=== PATIENT | female | born 1980 | race African-American/Black ===

== ENCOUNTER → 2017-04-12 | Day surgery (SDC) | payer OTHER ==
[~2017-04-12] MED LIST: BUPIVACAINE HCL PF 0.5% 10 ML VIAL ONE; BUTACAP2 PO; CYCL10TA PO; CYCL20CR PO; LACTATED RINGER'S 1000 ML INJ 1,000 ML ONE; MIDAZOLAM HCL 2 MG/2 ML VIAL ONE; NEUR300C PO; TRAM50TA PO; [UNRECOGNIZED DRUG - CODE]; ceFAZolin INJ 1,000 MG VIAL ONE
--- NOTE | 2017-04-15 13:54 | PD.OP ---
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 He is scheduled for the above- mentioned procedures. The planned procedures were discussed with the patient including the associated risks. The risks included but are not limited to bleeding, infection, nerve damage, failure to heal, possible need for reoperation, possible recurrence, or any associated risk of the anesthesia. He voiced understanding and agreed with my recommendations and proceed as planned. DESCRIPTION OF PROCEDURE: The patient was identified in the holding area and correct operative site (LEFT) was identified by the surgeon's jaime. Informed consent was obtained. The patient was then brought to the operating room and transferred to the operating table in supine position. She has severe left upper extremity contracture at the shoulder elbow and wrist making positioning challenging. Time-out was then performed at which point the surgeon, nursing staff, and anesthesia staff all confirmed the correct identification. After adequate general LMA anesthesia was obtained, a well-padded tourniquet was placed on the patient's right upper arm. The left upper extremity was then prepped and draped in the usual sterile fashion. Planned skin incision was marked along the base of the patient's palm. The upper extremity was then exsanguinated using Esmarch. The tourniquet was then inflated to 250 mmHg. Skin incision was then made and dissection was carried down with scalpel to the level of the palmar fascia which was sharply divided by the skin incision. Bleeding points were identified with electrocautery using bipolar electrocautery. Retractors were then placed to allow visualization of the distal extent of the transverse carpal ligament, and this was then divided longitudinally under direct vision. Metzenbaum scissors were used to dissect distally to this area to confirm the absence of any remaining obstructing fibrous band, taking care not to injure the structural palmar arch. Retractors were then replaced proximally to allow visualization of proximal extent of the transverse carpal ligament and the release was continued proximally until complete release was performed. This was confirmed by visually and palpably. Carpal canal was then inspected. The median nerve was flattened and injected. No other abnormalities were noted. Wounds were then irrigated with normal saline and antibiotic additive. Skin incision was then closed with interrupted 2 -0 nylon suture. Sterile dressing was applied. There were no intraoperative or immediate postoperative complications. All counts were reported as correct. Shadi Bowen Jr., MD Apr 15, 2017 13:54
== END | disposition home or self-care (01) ==
LOC: ESDC 12:47
PROVIDERS: ATTEND Orthopaedic Surgery
DX: G56.02 Carpal tunnel syndrome, left upper limb (principal); Z53.8 Procedure and treatment not carried out for other reasons
CPT/HCPCS: G0463; J0690; J7120; 99211; J2250